=== PATIENT | female | born 1940 | race Caucasian/White ===

== ENCOUNTER 2017-02-16 10:36 | Emergency (ER) | payer MEDICARE, OTHER ==
[~2017-02-16] VITALS: Ht 177.8 cm; Wt 77.3 kg
[~2017-02-16 10:36] MED LIST: ASPI-973 PO; CHOL100045 PO; CLON0.1T PO; FOLI1TAB18 PO; MESA500C PO; MIRA50TA PO; NITR0.4T SL; PRE625 PO; vitamin b-12 PO
[2017-02-16 10:54] VITALS: BP 150/72; PULSE 84; RESP 18; O2SAT 97
--- NOTE | 2017-02-16 11:35 | ED.REPORT ---
HPI-Abd Pain F 40 and Over Date of Service Feb 16, 2017 ED Provider: History of Present Illness: 77-year-old female here with abdominal pain since yesterday. History of multiple bowel obstructions. Feels like this is one coming on. The abdominal pain is generalized and it got worse this morning. She did eat breakfast and has kept down. She denies nausea although she feels like coming on. Bowel movement was normal for her and it was this morning. She is a history of Crohn's and multiple bowel resections. Last Bowel obstruction was one year ago. She is also having urinary frequency. She has been seen at the urgent care twice for this. On January 26 she was started on a round of Macrobid. She got a little bit better within a few days with symptomatic again. She went back on Friday and was started on the same antibiotic but is still having urinary frequency. She has a history of urinary frequency years ago and takes Myrbetriq for this. She also has a history of kidney stones. Unknown if this is a kidney stone or not. The urgent care does not have any bacteria in her urine she states but just some blood. She started having some low back pain a few days ago, middle lumbar area. No fever. She has a history of Crohn's. Nursing Notes Stated Complaint: BOWEL OBSTRUCTION Chief Complaint: Female Abdominal Pain Allergies: Coded Allergies: hydromorphone HCl (Verified Allergy, Severe, N/V, 02/29/16) Scheduled ([vitamin b-12]) Unknown Dose PO DAILY Aspirin (Aspirin) 81 Mg Tablet 81 MG PO DAILY Cholecalciferol (Vitamin D3) (Vitamin D) 1,000 Unit Capsule 1,000 UNIT PO DAILY Clonidine (Clonidine) 0.1 Mg Tablet 0.1 MG PO BID Estrogens Conjugated (Premarin) 0.625 Mg Tablet 0.3125 MG PO DAILY Folic Acid (Folic Acid) 1 Mg Tablet 1 MG PO DAILY Mesalamine (Pentasa) 500 Mg Capsule.er 1,000 MG PO QID Mirabegron ER (Myrbetriq) 50 Mg Tablet 50 MG PO DAILY Scheduled PRN Hydrocodone-Acetaminophen 5-325 mg (Hydrocodone-Acetaminophen 5-325 mg) 1 Each Tablet 1 TABLET PO Q4H PRN PRN For Pain Nitroglycerin SL (Nitrostat) 0.4 Mg Tab.subl 0.4 MG SL Q5MIN PRN PRN For Chest Pain call 911 if no relief after 2nd dose Ondansetron ODT (Zofran ODT) 4 Mg Tablet 4 MG PO Q4H PRN PRN For Nausea General Time Seen by MD: 11:15 Chief Complaint Abdominal pain Hx Obtained From: Patient Arrived By: Walk-in Sudden in Onset?: Yes Onset Occurred: 1 day ago Symptom Duration: Constant Location: : Diffuse Quality: Same as prior Severity: Current: Moderate Severity: Maximum: Moderate Pertinent Negative: Pt denies other symptoms Recent Healthcare: Recent doctor visit Similar Sx Previous: Yes Risk Factors Risk Notes: hx kidney stones, obstruction of bowel, chrons Past Medical History Past Medical History Notes: GI: Dr. Gil Past Medical History Crohn's Disease several small bowel obstructions - most recent in 2016 kidney stones Reports: Cancer, GERD, Hypertension Reports: Thyroid disease Past Surgical History SBO surgery x3, 32 inches of bowel removed Right knee two fistula repairs Smoking History Light Tobacco Smoker Social History Other Social History: Good social support, , Local resident Ambulatory Status Independent Review of Systems Basic Review of Systems Eyes: Vision NL, No discharge ENT: Hearing NL, No pain, No nasal congestion, No pharyngeal pain Neurologic: NL mental status, No weakness, No numbness Psychiatric: Normal thought content Constitutional: Denies: Chills, Fatigue, Fever Respiratory: Denies: Dyspnea on exertion Cardiovascular: Denies: Chest pain GI: Reports: Abdominal pain, Anorexia, Denies: Melena, Nausea, Vomiting Female: Reports: Urinary frequency, Denies: Dysuria Musculoskeletal: Reports: Back pain Complete sys rev & neg: except as marked. Physical Exam Vital Signs Vital Signs (First) Date Time Temp Pulse Resp B/P Pulse Ox O2 Delivery O2 Flow Rate FiO2 02/16/17 10:54 36.0 84 18 150/72 97 Room Air Initial VS: Reviewed, Vital signs normal General/Constitutional: Awake, Alert Respiratory / Chest: Breath sounds NL, Breath sounds = bilat, No respiratory distress, No rales, No rhonchi, No wheezing, No stridor Cardiovascular: Heart rate NL, Regular rhythm, Heart sounds NL, Peripheral circulation NL Abdomen: Atraumatic, Soft, No guarding, No rebound, BS normoactive, No distention, No hernia, No palpable mass, No pulsatile mass Tenderness/Guarding/Rebound: Positive: Tender LLQ... (Moderate), Tender LUQ... (Mild), Tender RLQ... (Moderate), Tender RUQ... (Mild), Tender periumbilical, Tender suprapubic Back: Inspection NL, Non-tender, No midline vertebral tend, No paraspinal tenderness, No CVA tenderness no cva tenderness Head / Eyes: Normocephalic, PERRL Skin: Color NL, Warm, Dry, Turgor NL Interpretation & Diagnostics Interpretation & Diagnostics: ROCEDURE: CT ABDOMEN AND PELVIS WITH CONTRAST ([id number]) INDICATIONS: Abdominal pain. TECHNIQUE: After the administration of oral and intravenous contrast, 5 mm thick sections acquired from the diaphragms to the symphysis. 5 mm thick coronal and sagittal reformats were performed. For radiation dose reduction, the following was used: automated exposure control, adjustment of mA and/or kV according to patient size. COMPARISON: [facility], CT, CHEST W/O CONTRAST, 03/03/2015, 10:20. [facility], CT, ABD/PELVIS W/CON (PNL), 05/11/2012, 17:15. FINDINGS: Image quality: Excellent. ABDOMEN: Lung bases: Lung bases are clear. Heart size is normal. There is a small hiatal hernia. Solid organs: Liver and spleen are normal in size and enhancement. Gallbladder contains multiple gallstones. No gallbladder wall thickening.. Biliary system is non-dilated. Pancreas enhances normally. No adrenal nodules. Kidneys are normal in size and enhancement, without hydronephrosis. Peritoneum and bowel: Stomach, small bowel, and colon loops are normal in caliber and wall thickness. Fluid-filled distal colon loops are noted with air-fluid levels. No free fluid or air. Nodes and vessels: No retroperitoneal or mesenteric adenopathy. Aorta and inferior vena cava are normal in caliber. There is moderate atherosclerosis. Miscellaneous: No ventral hernias. PELVIS: Genitourinary: Bladder wall thickness is normal. Miscellaneous: No inguinal hernias or adenopathy. Bones: No suspicious bony lesions. No vertebral body compression fractures. IMPRESSION: 1. Cholelithiasis. No CT evidence for acute cholecystitis. 2. Fluid filled distal colon loops with air-fluid levels. No evidence for small bowel obstruction. 3. Moderate atherosclerosis. Lab Results Interpretation Result Diagram: 02/16/17 1241 02/16/17 1324 Test 02/16/17 11:49 02/16/17 12:41 02/16/17 13:24 02/16/17 18:30 Urine Color Yellow (YELLOW) Urine Appearance Clear (CLEAR,HAZY) Urine pH 5.0 (5.0-8.0) Urine Specific [place] 1.005 (1.003-1.035) Urine Protein Negativemg/dL (NEG,TRACE) Urine Glucose (UA) Negativemg/dL (NEGATIVE) Urine Ketones Negativemg/dL (NEGATIVE) Urine Occult Blood Moderate (NEGATIVE) Urine Nitrite Negative (NEGATIVE) Urine Bilirubin Negative (NEGATIVE) Urine Urobilinogen Normalmg/dL (NORMAL) Urine Leukocyte Esterase Negative (NEGATIVE) Urine RBC 0-2/hpf (0-2) Urine WBC 0-5/hpf (0-5) Urine Epithelial Cells Few/hpf (NONE-MOD) Urine Crystals None seen (NONE SEEN) Urine Bacteria None/hpf (NONE-FEW) Urine Hyaline Casts None/lpf (NONE) Urine Granular Casts None seen (NONE SEEN) Urine Waxy Casts None seen (NONE SEEN) Urine Red Blood Cell Casts None seen (NONE SEEN) Urine White Blood Cell Casts None seen (NONE SEEN) Urine Mucus None seen (None Seen) Urine Trichomonas None seen (NONE SEEN) Urine Yeast None (NONE SEEN) Urinalysis Comment None Urine Culture Reflexed Not indicated White Blood Count 8.4th/mm3 (3.8-10.1) Red Blood Count 4.68mil/mm3 (3.90-5.20) Hemoglobin 15.0g/dL (12.0-15.6) Hematocrit 44.4% (35.0-46.0) Mean Corpuscular Volume 94.9fL (81-100) Mean Corpuscular Hemoglobin 32.1pg (27.0-35.0) Mean Corpuscular Hemoglobin Concent 33.8% (32.0-37.0) Red Cell Distribution Width 12.9% (12.3-15.4) Platelet Count 280bil/L (150-400) Neutrophils (%) (Auto) 65.9% (40-74) Lymphocytes (%) (Auto) 22.5% (14-46) Monocytes (%) (Auto) 8.1% (4-12) Eosinophils (%) (Auto) 2.7% (0-5) Basophils (%) (Auto) 0.6% (0-3) Sodium Level 141mEq/L (134-144) Potassium Level 4.6mEq/L (3.5-5.2) Chloride Level 106mEq/L (97-108) Carbon Dioxide Level 19mmol/L (18-29) Blood Urea Nitrogen 16mg/dL (8-27) Creatinine 0.94mg/dL (0.57-1.00) Estimat Glomerular Filtration Rate 83mL/min (>59) Glucose Level 95mg/dL (60-99) Calcium Level 9.6mg/dL (8.5-10.1) Magnesium Level 1.9mg/dL (1.6-2.6) Total Bilirubin 0.4mg/dL (0.0-1.2) Aspartate Amino Transf (AST/SGOT) 18U/L (0-50) Alanine Aminotransferase (ALT/SGPT) 15U/L (0-32) Alkaline Phosphatase 107U/L (25-165) Total Protein 6.6g/dL (6.4-8.4) Albumin 4.2g/dL (3.4-5.0) Lipase 61U/L (13-60) Hold Allen Top Tube Received (Received) Lactic Acid Level 0.9mmol/L (0.4-2.0) Re-Eval/Medical Decision Med Decision/Clinical Course Dr. Garcia evaluated patient as well as myself. Patient is feeling well enough to go home on pain meds and nausea meds. No bowel obstruction seen although signs of early bowel obstruction were noted. Patient will go home to clear liquids, pain control, warm packs to abd and return if worsening. After being in the emergency room for 8 hours patient is still able to keep fluids down and pain has been well-controlled. Discharge & Departure Shift Change Sign-Out Laboratory Evaluation: Lab evaluation discussed Imaging Studies: Imaging discussed Procedures: Results discussed Response to Therapy: Improved Primary Impression: Abdominal pain Abdominal location: generalized Qualified Code: R10.84 - Generalized abdominal pain Additional Impressions: Acute Crohn's disease Digestive disease complication type: unspecified complication Qualified Code : K50.919 - Crohn's disease, unspecified, with unspecified complications Urinary frequency Disposition: Home Discharge Condition All VS Reviewed: Yes Condition: Stable Patient Instructions: Acute Abdominal Pain (ED) Additional Instructions: Take nausea meds and [place] as needed for pain. No driving, alcohol intake or extra acetaminophen when taking [place]. Return immediately if you start vomiting or unable to tolerate oral intake. Clear liquid diet. Follow-up with your PCP in one to 2 days. you may also want to visit your urologist regarding the urinary frequency. No UTI was found today. Referrals: John Hdz MD (PCP) EDSupervising Provider for APC: Vasiliy Garcia DO copies to: Vasiliy Garcia DO; John Hdz MD, Linnea K ARNP Feb 16, 2017 11:35
[2017-02-16] MEDS ORDERED: 0.9% Sodium Chloride 1,000 ML IV ONE (11:44)
[2017-02-16] MEDS ORDERED: Ondansetron 2 mg/mL 2 mL Inj IVPUSH ONE ×2 (11:45→15:15)
[2017-02-16 12:22] LABS: APPEARANCE,URINE CLEAR (CLEAR,HAZY); COLOR,URINE YELLOW (YELLOW); OCCULT BLOOD,URINE MODERATE (NEGATIVE); UROBILINOGEN,URINE NORMAL (NORMAL)
[2017-02-16 12:54] LABS: BASOPHILS % (AUTO) 0.6 % (0-3); EOSINOPHILS % (AUTO) 2.7 % (0-5); MONOCYTES % (AUTO) 8.1 % (4-12); Mean Corpuscular Hemoglobin 32.1 pg (27.0-35.0); Mean Corpuscular Volume 94.9 fL (81-100); NEUTROPHILS % (AUTO) 65.9 % (40-74); Platelet Count 280 bil/L (150-400)
[2017-02-16] MEDS ORDERED: Iohexol Inj 30 ML ONE (13:05)
[2017-02-16 14:08] LABS: Magnesium 1.9 mg/dL (1.6-2.6)
[2017-02-16 16:08] VITALS: BP 125/78; PULSE 65; RESP 20; O2SAT 97
--- NOTE | 2017-02-16 17:59 | DRSVH ---
PROCEDURE: CT ABDOMEN AND PELVIS WITH CONTRAST ([id number]) INDICATIONS: Abdominal pain. TECHNIQUE: After the administration of oral and intravenous contrast, 5 mm thick sections acquired from the diap hragms to the symphysis. 5 mm thick coronal and sagittal reformats were performed. For radiation do se reduction, the following was used: automated exposure control, adjustment of mA and/or kV accordi ng to patient size. COMPARISON: [facility], CT, CHEST W/O CONTRAST, 03/03/2015, 10:20. [facility], CT, ABD/PELVIS W/CON (PNL), 05/11/2012, 17:15. FINDINGS: Image quality: Excellent. ABDOMEN: Lung bases: Lung bases are clear. Heart size is normal. There is a small hiatal hernia. Solid organs: Liver and spleen are normal in size and enhancement. Gallbladder contains multiple ga llstones. No gallbladder wall thickening.. Biliary system is non-dilated. Pancreas enhances normall y. No adrenal nodules. Kidneys are normal in size and enhancement, without hydronephrosis. Peritoneum and bowel: Stomach, small bowel, and colon loops are normal in caliber and wall thickness . Fluid-filled distal colon loops are noted with air-fluid levels. No free fluid or air. Nodes and vessels: No retroperitoneal or mesenteric adenopathy. Aorta and inferior vena cava are no rmal in caliber. There is moderate atherosclerosis. Miscellaneous: No ventral hernias. PELVIS: Genitourinary: Bladder wall thickness is normal. Miscellaneous: No inguinal hernias or adenopathy. Bones: No suspicious bony lesions. No vertebral body compression fractures. IMPRESSION: 1. Cholelithiasis. No CT evidence for acute cholecystitis. 2. Fluid filled distal colon loops with air-fluid levels. No evidence for small bowel obstruction. 3. Moderate atherosclerosis. Dictated by: Jerrell Bruno M.D. on 02/16/2017 at 17:53 Approved by: Jerrell Bruno M.D. on 02/16/2017 at 17:57
[2017-02-16] MEDS ORDERED: _Ondansetron ODT 4 mg Tablet PO PRN (18:55)
[2017-02-16] MEDS ORDERED: _HYDROcodone/APAP 5-325 mg Tablet PO PRN (18:55)
[2017-02-16] MEDS ORDERED: HYDR-4003 PO (19:01)
[2017-02-16] MEDS ORDERED: ONDA4TAB9 PO (19:02)
[2017-02-16 19:27] VITALS: BP 128/77; PULSE 65; RESP 18; O2SAT 98
== END 2017-02-16 19:39 | disposition home or self-care (01) ==
LOC: SED 10:36
DX: K50.919 Crohn's disease, unspecified, with unspecified complications (principal); R35.0 Frequency of micturition; I10 Essential (primary) hypertension; F17.200 Nicotine dependence, unspecified, uncomplicated; Z88.5 Allergy status to narcotic agent; K21.9 Gastro-esophageal reflux disease without esophagitis; E07.9 Disorder of thyroid, unspecified; Z85.9 Personal history of malignant neoplasm, unspecified; M54.5 Low back pain
CPT/HCPCS: 36415; 74177; 80053; 81000; 83605; 83690; 83735; 85025; 96361; 96374; 96375; 96376; 99285; J2270; J2405; J7030; Q9967